=== PATIENT | female | born 1990 | race African-American/Black ===

== ENCOUNTER 2021-10-23 11:08 | Emergency (ER) | payer BC, SELFPAY ==
[2021-10-23] VITALS (32 sets, daily range): BP systolic 94–127; BP diastolic 50–91; PULSE 56–86; RESP 8–19; TEMP 36.6; O2SAT 99–100
--- NOTE | ~2021-10-23 | US_ITS ---
US abdomen limited DATE: 10/23/2021 12:46 INDICATION: Epigastric and right upper quadrant abdominal pain TECHNIQUE: Real-time imaging of liver, pancreas, gallbladder COMPARISON: None FINDINGS: No hepatic or pancreatic space-occupying mass lesion is detected. Normal hepatopedal portal venous flow direction. No gallstones or gallbladder wall thickening or abnormal pericholecystic flui d collection. Negative sonographic Amador's sign. The common bile duct measures 2 mm, normal. IMPRESSION: Normal examination Reviewed, dictated and finalized at [facility]. Reviewed, dictated and finalized at location [facility]. IMPRESSION: Normal examination
--- NOTE | ~2021-10-23 | CT_ITS ---
EXAMINATION: CTA chest PE protocol DATE: 10/23/2021 14:41 INDICATION: cp, elevated dimer TECHNIQUE: Computed tomography angiography (CTA) of the chest was performed with 100 mL Omnipaque-350 intravenous contrast timed to evaluate the pulmonary arteries. Coronal maximum intensity projection 3D-reconstructions were created by the technologist. The dose-length product (DLP) was 186.92 mGy-cm. Automated exposure control and iterative reconstruction technique were employed. COMPARISON: None. FINDINGS: Study quality: Adequate. Pulmonary arteries: No pulmonary emboli detected. Thoracic aorta: Normal. Lung parenchyma and airways: Clear. Thoracic inlet, axillae and chest wall: Enlarged thyroid, otherwise unremarkable. Mediastinum: Normal. Heart and pericardium: Normal. Coronary artery calcifications: Absent. Pleura: Unremarkable. Upper abdomen: No significant finding. Bones: No acute osseous finding. IMPRESSION: No CT evidence of acute pulmonary embolus. Goiter. Reviewed, dictated and finalized at [facility].
--- NOTE | ~2021-10-23 | CT_ITS ---
EXAMINATION: CT abdomen pelvis wo con DATE: 10/23/2021 13:49 INDICATION: Epigastric abdominal pain TECHNIQUE: Computed tomography (CT) of the abdomen and pelvis was performed without intravenous contr ast. Automated exposure control and iterative reconstruction technique were employed. Exam dose: 205 .63 mGy-cm total exam DLP. COMPARISON: 10/23/2021 abdominal ultrasound Limited examination FINDINGS: The lung bases are clear. Normal heart size. No pericardial or pleural effusion. The liver, gallbladder, bile ducts, spleen, pancreas and pancreatic duct appear unremarkable on this limited noncontrast examination. Normal morphology of the adrenal glands. No renal mass lesion or uri nary tract calculus or hydroureteronephrosis is detected. The urinary bladder, uterus and adnexal are as are unremarkable. Normal caliber of the abdominal aorta. No intraperitoneal or retroperitoneal or pelvic mass lesion or adenopathy or ascites. Very small sliding hiatal hernia. No bowel obstruction or intraperitoneal free air. Included skeletal structures are unremarkable. IMPRESSION: No significant abnormality Reviewed, dictated and finalized at [facility]. Reviewed, dictated and finalized at location [facility]. IMPRESSION: No significant abnormality
[2021-10-23 11:48] LABS: Basophils Percent Auto 0.5 % (0.2-1.2); Eosinophils Absolute Auto 0.1 K/mm3 (0-0.3); Hematocrit 37.1 % (37.0-47.0); Hemoglobin 12.2 g/dL (12.0-15.0); Immature Granulocyte Absolute 0.01 K/mm3 (0.00-0.031); Immature Granulocyte Percent A 0.2 % (0-0.5); Lymphocytes Percent Auto 28.1 % (18.3-44.2); Mean Corpuscular HGB Conc 32.9 g/dl (32-36); Mean Corpuscular Hemoglobin 32.4 pg (26-34); Mean Corpuscular Volume 98.7 fl (80-100); Monocytes Absolute Auto 0.5 K/mm3 (0.1-0.6); Monocytes Percent Auto 7.9 % (2.6-8.5); Neutrophils Absolute Auto 3.8 K/mm3 (1.3-6.7); Neutrophils Percent Auto 62.3 % (45.5-73.1); Platelet Count Result 238 k/mm3 (150-375); Red Blood Count 3.76 M/mm3 (4.2-5.4); Red Cell Distribution Width 12.9 % (11.5-14.5)
--- NOTE | 2021-10-23 11:51 | ECG_ITS ---
Measurements Intervals [place] Rate: 55 P: 63 VA: 166 QRS: 65 QRSD: 81 T: 50 QT: 442 QTc: 426 Interpretive Statements SINUS BRADYCARDIA NORMAL ECG NO PREVIOUS ECG AVAILABLE FOR COMPARISON Electronically Signed On 10-24-2021 9:14:08 CDT by Kavin Boyd M.D.
--- NOTE | 2021-10-23 11:51 | ED.ABDPAIN ---
HPI - Abdominal Pain General Chief Complaint: Abdominal Pain <Olivia Carreon PA-C - Last Filed: 10/23/21 15:30> Stated Complaint: abd pain <Olivia Carreon PA-C - Last Filed: 10/23/21 15:30> Time Seen by Provider: 10/23/21 11:31 <Olivia Carreon PA-C - Last Filed: 10/23/21 15:30> Source: patient <FREDO Franco Last Filed: 10/23/21 15:30> Mode of arrival: ambulatory <Olivia Carreon PA-C - Last Filed: 10/23/21 15:30> Limitations: no limitations <Olivia Carreon PA-C - Last Filed: 10/23/21 15:30> History of Present Illness HPI narrative: This is a 31-year-old female that presents to the emergency department for epigastric abdominal pain. Ongoing over the last couple of days. Associated with nausea and vomiting. She has tried several [id number]-[id number]-[id number] medications with little relief. Reports sometimes the pain radiates into her chest and back. Denies fever, dysuria, hematuria, or diarrhea. <Olivia Carreon PA-C - Last Filed: 10/23/21 15:30> Related Data Allergies/Adverse Reactions: Allergies Allergy/AdvReac Type Severity Reaction Status Date / Time No Known Allergies Allergy Verified 10/23/21 11:51 <Olivia Carreon PA-C - Last Filed: 10/23/21 15:30> Review of Systems Review of Systems: CONSTITUTIONAL: Denies fever CARDIOVASCULAR: Reports chest pain RESPIRATORY: Denies dyspnea. GASTROINTESTINAL: Reports abdominal pain, nausea, vomiting. Denies diarrhea. GENITOURINARY: Denies dysuria or hematuria. <Olivia Carreon PA-C - Last Filed: 10/23/21 15:30> All systems reviewed & are unremarkable except as noted in HPI and below <Olivia Carreon PA-C - Last Filed: 10/23/21 15:30> PMFSH Past Medical History Medical History: Medical History (Updated 10/23/21 @ 15:27 by Olivia Carreon PA-C) No active medical problems <Olivia Carreon PA-C - Last Filed: 10/23/21 15:30> Social History Social History: Social History (Updated 10/23/21 @ 11:52 by Olivia Carreon PA-C) Substance use: never <Olivia Carreon PA-C - Last Filed: 10/23/21 15:30> Exam Narrative: GENERAL: Well-appearing, well-nourished, and in no acute distress. HEAD: Normocephalic, atraumatic. EYES: EOMI. CHEST: Clear to auscultation. No respiratory distress. No wheezes rales or rhonchi HEART: Regular rate and rhythm. No murmur heard. Normal peripheral pulses. ABDOMEN: Soft, nondistended, normal active bowel sounds. Tender to palpation in epigastrium and right upper quadrant with guarding present EXTREMITIES: Normal range of motion. No edema. SKIN: Warm, dry, no rash. NEURO: No focal deficits. Alert and oriented x3. PSYCH: Normal mood and affect <Olivia Carreon PA-C - Last Filed: 10/23/21 15:30> Course PROFESSOR OF HISTORY/PA Physician Supervision For this patient encounter, I reviewed the PROFESSOR OF HISTORY or PA documentation, treatment plan, and medical decision making <Vinay Velásquez MD - Last Filed: 10/23/21 17:27> Vital Signs Vital signs: Vital Signs Temperature 97.8 F 10/23/21 11:15 Pulse Rate 86 10/23/21 11:15 Respiratory Rate 16 10/23/21 11:15 Blood Pressure 127/91 H 10/23/21 11:15 Pulse Oximetry 99 10/23/21 11:15 Oxygen Delivery Room Air 10/23/21 11:15 Temperature 97.8 F 10/23/21 11:15 Pulse Rate 66 10/23/21 16:01 Respiratory Rate 14 10/23/21 16:01 Blood Pressure 103/72 10/23/21 16:00 Pulse Oximetry 100 10/23/21 16:01 Oxygen Delivery Room Air 10/23/21 11:15 <Olivia Carreon PA-C - Last Filed: 10/23/21 15:30> Vital Signs Temperature 97.8 F 10/23/21 11:15 Pulse Rate 86 10/23/21 11:15 Respiratory Rate 16 10/23/21 11:15 Blood Pressure 127/91 H 10/23/21 11:15 Pulse Oximetry 99 10/23/21 11:15 Oxygen Delivery Room Air 10/23/21 11:15 Temperature 97.8 F 10/23/21 11:15 Pulse Rate 66 10/23/21 16:01 Respiratory Rate 14 10/23/21 16:01 Blood Pressure 103/72 10/23/21 16:00 Pulse Oximetry 100
[2021-10-23 12:01] LABS: Alanine Aminotransferase 14 U/L (6-35); Albumin Level 4.7 g/dL (3.5-5.1); Alkaline Phosphatase 55 U/L (38-126); Anion Gap 6 mmol/L (8-16); Aspartate Amino Transferase 23 U/L (14-36); Bilirubin,Total 0.4 mg/dL (0.2-1.3); Blood Urea Nitrogen 8 mg/dL (7-17); Calcium 8.9 mg/dL (8.4-10.2); Carbon Dioxide 29 mmol/L (22-30); Chloride 104 mmol/L (98-107); Estimated CRCL calculation 80 ml/min; Estimated Glomerular Filt Rate > 60; Glucose 87 mg/dL (65-110); Lipase 100 U/L (23-300); Potassium 3.5 mmol/L (3.4-5.0); Sodium 139 mmol/L (137-145)
[2021-10-23 12:14] LABS: Appearance Urine Clear (Clear); Bilirubin Urine Negative (Negative); Blood Urine Negative (Negative); Color Urine Yellow (Yellow); Glucose Urine UA Negative (Negative); Ketones Urine Negative (Negative); Leukocyte Esterase Ur Negative LEU/UL (Negative); Nitrate Urine Negative (Negative); Protein Urine Negative (Negative); Specific Grav Ur 1.015 (1.001-1.035); Urobilinogen Urine 0.2 mg/dL (<2.0); pH Urine 8.5 (5.0-9.0)
[2021-10-23 12:15] LABS: Add Urine Microscopic? NO
[2021-10-23] MEDS: MORPHINE SULFATE (*CRX) 4 MG/ML INJ IV PUSH (12:28)
[2021-10-23] MEDS: ONDANSETRON INJ 4 MG/2 ML VIAL IV PUSH (12:28)
--- NOTE | 2021-10-23 12:40 | PC.NURSE ---
Patient off unit to US.
[2021-10-23 12:50] LABS: INR 1.1; Prothrombin Time 13.3 Seconds (11.1-14.7)
--- NOTE | 2021-10-23 12:50 | PC.NURSE ---
Contacted pharmacy for Protonix.
[2021-10-23 12:51] LABS: Partial Thromboplastin Time 30.1 SECONDS (22.3-36.8)
[2021-10-23 13:37] LABS: Troponin I 0.014 ng/mL (0.000-0.034)
[2021-10-23 13:57] LABS: D Dimer 0.69 ug/mL (<0.48)
[2021-10-23] MEDS: PANTOPRAZOLE SODIUM IV 40 MG VIAL IV PUSH (14:53)
== END 2021-10-23 16:30 | disposition home or self-care (01) ==
PROVIDERS: Physician Assistant; Emergency Provider Emergency Medicine
DX: R10.13 Epigastric pain (principal); E04.9 Nontoxic goiter, unspecified; R00.1 Bradycardia, unspecified
CPT/HCPCS: 36415; 71275; 74176; 76705; 80053; 81003; 81025; 83690; 84443; 84484; 85025; 85380; 85610; 85730; 93005; 96365; 96375; 99284; C9113; J0131; J2270; J2405; Q9967

== ENCOUNTER 2022-10-28 00:56 | Emergency (ER) | payer BC, SELFPAY ==
--- NOTE | ~2022-10-28 | XR_ITS ---
Clinical Indication: Chest pain PA and lateral views of the chest: Comparison: None Findings: The lungs are clear, without evidence of focal consolidation or pleural effusion. Cardiome diastinal silhouette is within normal limits. Bones and soft tissues are unremarkable. Impression: Normal chest. Reviewed, dictated and finalized at location . Impression: Normal chest.
--- NOTE | 2022-10-28 00:58 | ECG_ITS ---
Measurements Intervals [place] Rate: 65 P: 78 TN: 171 QRS: 74 QRSD: 79 T: 61 QT: 392 QTc: 408 Interpretive Statements SINUS RHYTHM WITH SINUS ARRHYTHMIA NORMAL ELECTROCARDIOGRAM COMPARED TO ECG 10/23/2021 13:58:05 NO DIFFERENCE Electronically Signed On 10-28-2022 8:00:18 CDT by Leon Tian M.D.
[2022-10-28 01:04] VITALS: BP 124/63; PULSE 72; RESP 20; TEMP 36.4; O2SAT 100
[2022-10-28 01:26] LABS: Basophils Percent Auto 0.5 % (0.2-1.2); Eosinophils Absolute Auto 0.1 K/mm3 (0-0.3); Eosinophils Percent Auto 1.4 % (0-4.4); Hemoglobin 11.7 g/dL (12.0-15.0); Immature Granulocyte Absolute 0.07 K/mm3 (0.00-0.031); Immature Granulocyte Percent A 1.1 % (0-0.5); Lymphocytes Absolute Auto 3.03 K/mm3 (0.9-3.2); Lymphocytes Percent Auto 45.5 % (18.3-44.2); Mean Corpuscular HGB Conc 33.4 g/dl (32-36); Mean Corpuscular Hemoglobin 32.5 pg (26-34); Mean Corpuscular Volume 97.2 fl (80-100); Mean Platelet Volume 9.2 fl (7.4-10.4); Monocytes Absolute Auto 0.4 K/mm3 (0.1-0.6); Monocytes Percent Auto 6.6 % (2.6-8.5); Neutrophils Percent Auto 44.9 % (45.5-73.1); Platelet Count Result 248 k/mm3 (150-375); Red Cell Distribution Width 12.2 % (11.5-14.5); White Blood Count 6.7 K/mm3 (4.5-10.0)
[2022-10-28 01:40] LABS: Alanine Aminotransferase 17 U/L (6-35); Albumin Level 4.3 g/dL (3.5-5.1); Alkaline Phosphatase 51 U/L (38-126); Anion Gap 4 mmol/L (8-16); Aspartate Amino Transferase 26 U/L (14-36); Bilirubin,Total 0.4 mg/dL (0.2-1.3); Blood Urea Nitrogen 11 mg/dL (7-17); Calcium 9.4 mg/dL (8.4-10.2); Carbon Dioxide 36 mmol/L (22-30); Chloride 100 mmol/L (98-107); Estimated CRCL calculation 81 ml/min; Estimated Glomerular Filt Rate > 60; Glucose 86 mg/dL (65-110); Lipase 130 U/L (23-300); Potassium 3.7 mmol/L (3.4-5.0); Sodium 140 mmol/L (137-145)
[2022-10-28 01:44] LABS: Prothrombin Time 13.7 Seconds (11.1-14.7)
[2022-10-28 01:52] LABS: Troponin I 0.016 ng/mL (0.000-0.034)
[2022-10-28 02:14] VITALS: BP 115/85; PULSE 66; RESP 12; O2SAT 100
[2022-10-28 02:23] VITALS: O2SAT 100
[2022-10-28] MEDS: SODIUM CHLORIDE 0.9% IV 1,000 ML 999 ML IV CONT (03:32)
[2022-10-28] MEDS: FAMOTIDINE 20 MG/2 ML VIAL IV PUSH (03:32)
[2022-10-28] MEDS: ONDANSETRON INJ 4 MG/2 ML VIAL IV PUSH (03:32)
[2022-10-28] MEDS: MAG HYDROX/AL HYDROX/SIMETH 30 ML UDC PO (03:32)
--- NOTE | 2022-10-28 03:34 | ED.GENADULT ---
HPI - General Adult General Chief complaint: Chest Pain Stated complaint: CP Time Seen by Provider: 10/28/22 02:30 History of Present Illness HPI narrative: This is a 32-year-old female presenting with 2 days of epigastric burning pain that has started to radiate up into her chest and back. It is 8 out 10 intensity and comes and goes. She states she has never had pain like this before. It is worse when she lays down. No alleviating factors. Associated with some nausea and vomiting and some fluttering in her chest. She denies fever chills shortness of breath, productive cough lower extremity edema. She is taking cast tech and Rolaids with no relief. Related Data Allergies Allergy/AdvReac Type Severity Reaction Status Date / Time No Known Allergies Allergy Verified 10/23/21 11:51 [facility] Past Medical History Medical History No active medical problems Social History Social History Substance use: never Exam Narrative: APPEARANCE: No apparent distress. Head: atraumatic. EYES: EOMI, NOSE: Atraumatic NECK: Trachea midline RESPIRATORY: No increased rate of breathing, clear to auscultation CARDIOVASCULAR: RRR, ABDOMINAL: mild tenderness in the epigastric area the rest the abdomen is soft nontender no guarding or rebound MUSCULOSKELETAl: No obvious deformities NEURO: Alert. Moving 4/4 extremities SKIN:: Warm, dry. Normal color PSYCHIATRIC: Normal affect Course Vital Signs Vital signs: Vital Signs Temperature 97.6 F 10/28/22 01:04 Pulse Rate 72 10/28/22 01:04 Respiratory Rate 20 10/28/22 01:04 Blood Pressure 124/63 10/28/22 01:04 Pulse Oximetry 100 10/28/22 01:04 Oxygen Delivery Room Air 10/28/22 01:04 Temperature 97.6 F 10/28/22 01:04 Pulse Rate 66 10/28/22 02:14 Respiratory Rate 12 10/28/22 02:14 Blood Pressure 115/85 10/28/22 02:14 Pulse Oximetry 100 10/28/22 02:23 Oxygen Delivery Room Air 10/28/22 02:23 Medical Decision Making [facility] Narrative Medical decision making narrative: -Presentation: 32-year-old female presenting with epigastric pain radiating up into her chest. 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 -Hx from independent Sources: mother at bedside -Discussion of Management/Consultants: none -Independent interpretation of studies: metabolic panel normal. CBC normal. Troponins ordered by nursing staff were within normal limits. Chest x-ray normal Independent EKG interpretation: Rhythm [sinus], Rate [65], [place] -[normal], [place] -[normal], QRS [narrow], QTC [normal], T waves -[negative for concerning inversions], ST Segments - [Negative for concerning elevations] Final interpretations: [Normal Sinus Rhythm] Dx tests considered but not ordered: PE studies- perc negative -Procedures: -Interventions: 1 L normal saline, Zofran, Pepcid, Maalox -Shared decision making / Disposition: upon re-evaluation the patient's symptoms have improved. She will be discharged on a 6 week course of Pepcid. Follow up with primary care -RX Pepcid 20 mg b.i.d. x6 weeks Vital Signs Vital Signs: Vital Signs Temperature 97.6 F 10/28/22 01:04 Pulse Rate 72 10/28/22 01:04 Respiratory Rate 20 10/28/22 01:04 Blood Pressure 124/63 10/28/22 01:04 Pulse Oximetry 100 10/28/22 01:04 Oxygen Delivery Room Air 10/28/22 01:04 Temperature 97.6 F 10/28/22 01:04 Pulse Rate 66 10/28/22 02:14 Respiratory Rate 12 10/28/22 02:14 Blood Pressure 115/85 10/28/22 02:14 Pulse Oximetry 100 10/28/22 02:23 Oxygen Delivery Room Air 10/28/22 02:23
[2022-10-28 03:47] VITALS: BP 119/80; PULSE 72; RESP 12; O2SAT 100
== END 2022-10-28 03:57 | disposition home or self-care (01) ==
PROVIDERS: Emergency Provider Emergency Medicine
DX: K21.00 Gastro-esophageal reflux disease with esophagitis, without bleeding (principal)
CPT/HCPCS: 36415; 71046; 80053; 83690; 84484; 85025; 85610; 85730; 93005; 96374; 96375; 99284; A9270; J2405; J7030